=== PATIENT | male | born 1930 | race African-American/Black ===

== ENCOUNTER 2021-05-12 13:11 | Emergency (ER) | payer MEDICARE, OTHER ==
[~2021-05-12] VITALS: Ht 185.4 cm; Wt 82.0 kg
[2021-05-12 13:25] VITALS: BP 133/52
[2021-05-12] MEDS ORDERED: ACETAMINOPHEN 650MG/20.3ML UDC PO ONE (13:30)
[2021-05-12] MEDS ORDERED: ACETAMINOPHEN 650MG/20.3ML UDC PO SCH (18:00)
== END 2021-05-12 20:10 | disposition home or self-care (01) ==
LOC: ER 13:11
DX: S93.401A Sprain of unspecified ligament of right ankle, initial encounter (principal); W18.30XA Fall on same level, unspecified, initial encounter; Y93.89 Activity, other specified; Y92.89 Other specified places as the place of occurrence of the external cause; Y99.8 Other external cause status
CPT/HCPCS: 73610; 99283